=== PATIENT | male | born 1995 | race Caucasian/White ===

== ENCOUNTER → 2017-01-22 | Outpatient (CLI) | payer OTHER ==
[~2017-01-22] MED LIST: None per pt
== END ==
LOC: STAR 10:59
PROVIDERS: ATTEND Orthopaedic Surgery
DX: Z02.9 Encounter for administrative examinations, unspecified (principal)

== ENCOUNTER 2017-01-30 05:30 | Day surgery (SDC) | payer OTHER ==
[2017-01-22 11:17] VITALS: BP 109/70
[~2017-01-30] VITALS: Ht 177.8 cm; Wt 70.3 kg
[2017-01-30] MEDS ORDERED: LACTATED RINGERS 1,000 ML IV SCH (05:58)
[2017-01-30] MEDS ORDERED: LIDOCAINE 1%, 2ML SQ PRN (06:00)
[2017-01-30] MEDS ORDERED: BUPIVACAINE/PF 0.25% ONE ×2 (06:11→06:27)
[2017-01-30] MEDS ORDERED: EPINEPHRINE 1 MG/ML, 1ML ONE (06:11)
[2017-01-30] MEDS ORDERED: FENTANYL PF 100 MCG/2ML ONE ×2 (06:24→09:00)
[2017-01-30] MEDS ORDERED: MIDAZOLAM 1 MG/ML, 2ML ONE (06:24)
[2017-01-30] MEDS ORDERED: ONDANSETRON 2MG/ML, 2ML ONE (06:52)
[2017-01-30] MEDS ORDERED: PROPOFOL 10 MG/ML, 20ML ONE (06:52)
[2017-01-30] MEDS ORDERED: GLYCOPYRROLATE 0.2MG/1ML ONE (06:52)
[2017-01-30] MEDS ORDERED: SUCCINYLCHOLINE 20 MG/ML, 10ML ONE (06:52)
[2017-01-30] MEDS ORDERED: ROCURONIUM 10 MG/ML ONE (06:52)
[2017-01-30] MEDS ORDERED: CEFAZOLIN 1,000 MG ONE (06:52)
[2017-01-30] MEDS ORDERED: DEXAMETHASONE 4 MG/ML, 1ML ONE (06:52)
[2017-01-30] MEDS ORDERED: NEOSTIGMINE 1 MG/ML, 10ML ONE (06:52)
[2017-01-30] MEDS ORDERED: PROMETHAZINE 25 MG/ML, 1ML IV PRN (08:00)
[2017-01-30] MEDS ORDERED: HYDROmorphone 1 MG/ML, 1ML IV PRN (08:00)
[2017-01-30] MEDS ORDERED: MEPERIDINE/PF 25MG/0.5ML IVPush PRN (08:00)
[2017-01-30] MEDS ORDERED: OXYcodone 5 MG/5 ML ORAL.SOL UDC PO PRN (08:00)
[2017-01-30] MEDS ORDERED: ACETAMINOPHEN 325 MG TABLET PO PRN (08:00)
[2017-01-30] MEDS ORDERED: ACETAMINOPHEN 650 MG/20.3 ML UDC ONE (09:00)
[2017-01-30] MEDS ORDERED: MEPERIDINE/PF 25MG/0.5ML ONE (09:01)
[2017-01-30] MEDS ORDERED: OXYcodone 5 MG/5 ML ORAL.SOL UDC ONE (09:01)
[2017-01-30] MEDS: FENTANYL PF 100 MCG/2ML IV PRN ×2 (09:04→09:25)
== END 2017-01-30 11:05 ==
LOC: OUT 05:30
PROVIDERS: ATTEND Orthopaedic Surgery
DX: S43.102A Unspecified dislocation of left acromioclavicular joint, initial encounter (principal); X58.XXXA Exposure to other specified factors, initial encounter; Y93.89 Activity, other specified; Y92.89 Other specified places as the place of occurrence of the external cause; Y99.8 Other external cause status
CPT/HCPCS: 23550; 29805; C1713; C1762; J0171; J0330; J0690; J1100; J2175; J2250; J2405; J2704; J2710; J3010; J3490; J7120